=== PATIENT | female | born 1975 | race Hispanic/Latino ===

== ENCOUNTER 2018-04-03 17:35 | Emergency (ER) | payer SELFPAY ==
[~2018-04-03] VITALS: Ht 154.9 cm; Wt 56.7 kg
== END 2018-04-03 22:07 | disposition left against medical advice (07) ==
LOC: ER 17:35
DX: D64.9 Anemia, unspecified (principal)
CPT/HCPCS: 81025; 99281

== ENCOUNTER 2019-05-08 07:40 | Emergency (ER) | payer SELFPAY ==
[~2019-05-08] VITALS: Ht 152.4 cm; Wt 61.3 kg
== END 2019-05-08 08:19 | disposition left against medical advice (07) ==
LOC: FSED 07:40
DX: R51 Headache (principal)